=== PATIENT | male | born 1960 | race Caucasian/White ===

== ENCOUNTER 2018-11-19 16:11 | Inpatient (IN) | payer OTHER ==
[2018-11-19 16:41] VITALS: BMI 25.0
--- NOTE | 2018-11-19 18:16 | HP ---
CIWA Score Nausea/Vomitin Muscle Tremors: 3 Anxiety: 3 Agitation: 3 Paroxysmal Sweats: 1-Minimal Palms Moist Orientation: 0-Oriented Tacttile Disturbances: 1-Very Mild Itch/Numbness Auditory Disturbances: 0-None Visual Disturbances: 0-None Headache: 2-Mild CIWA-Ar Total Score: 15 - Admission Criteria [facility]ASAS Guidelines: Admission for Medically Managed Detox: Requires at least one of the followin. CIWA greater than 12 2. Seizures within the past 24 hours 3. Delirium tremens within the past 24 hours 4. Hallucinations within the past 24 hours 5. Acute intervention needed for co occurring medical disorder 6. Acute intervention needed for co occurring psychiatric disorder 7. Severe withdrawal that cannot be handled at a lower level of care (continued vomiting, continued diarrhea, abnormal vital signs) requiring intravenous medication and/or fluids 8. Admission ROS S - HPI Chief Complaint: i need help to stop drinking alcohol Allergies/Adverse Reactions: Allergies Allergy/AdvReac Type Severity Reaction Status Date / Time No Known Allergies Allergy Verified 11/19/18 16:34 History of Present Illness: this 58 years old male with alcohol dependence,withdrawal symptom,seeking detox, last detox 2006 in [facility] denied seizure syncope open heart surgery mitral valve repair in 08/04 and lung surgery right on suboxone maintainence adhd anxiety,depression,insomnia longest sobriety 2 months plan to out patient program,aa meeting nicotine 10 cigarette,would like to have patch Exam Limitations: No Limitations - Ebola screening Have you traveled outside of the country in the last 21 days: No (N) Have you had contact with anyone from an Ebola affected area: No Do you have a fever: No - Review of Systems Constitutional: Loss of Appetite, Malaise, Night Sweats, Changes in sleep, Weakness EENT: reports: Nose Congestion Respiratory: reports: No Symptoms reported, Other (sugery of lung right) Cardiac: reports: Other (history of mitral valve repair) GI: reports: Nausea, Abdominal cramping : reports: No Symptoms Reported Musculoskeletal: reports: Back Pain, Muscle Pain Integumentary: reports: Dryness Neuro: reports: Headache, Tremors Endocrine: reports: No Symptoms Reported Hematology: reports: No Symptoms Reported Psychiatric: reports: No Sypmtoms Reported, Judgement Intact, Mood/Affect Appropiate, Orientated x3, Anxious, Depressed, other (insomnia,ptsd,adhd) Patient History - Patient Medical History Hx Anemia: No Hx Asthma: No Hx Chronic Obstructive Pulmonary Disease (COPD): No Hx Cancer: No Hx Cardiac Disorders: Yes (mitral valve repair) Hx Congestive Heart Failure: No Hx Hypertension: Yes (on med) Hx Hypercholesterolemia: No Hx Pacemaker: No HX Cerebrovascular Accident: No Hx Seizures: No Hx Dementia: No Hx Diabetes: No Hx Gastrointestinal Disorders: No Hx Liver Disease: No Hx Genitourinary Disorders: No Hx Sexually Transmitted Disorders: No Hx Renal Disease (ESRD): No Hx Thyroid Disease: No Hx Human Immunodeficiency Virus (HIV): No (last 2017) Hx Hepatitis C: No Hx Depression: Yes (anxiety,insomnia,ptsd,adhd) Hx Suicide Attempt: No Hx Bipolar Disorder: No Hx Schizophrenia: No Other Medical History: no suicidal,no homicidal - Patient Surgical History Past Surgical History: Yes Hx Cardiac Surgery: Yes (mitral valve repair 08/04) Hx Lung Surgery: Yes (right 08/04) - PPD History Previous Implant?: Yes Documented Results: Negative w/o proof Implanted On Prior [facility] Admission?: No PPD to be Administered?: No - Smoking Cessation Smoking history: Current every day smoker Have you smoked in the past 12 months: Yes Cigars Per Day: 10 Hx Chewing Tobacco Use: No Initiated information on smoking cessation: Yes 'Breaking Loose' booklet given: 11/19/18 - Substance & Tx. History Hx Alcohol Use: Yes Hx Substance Use: No Substance Use Type: Alcohol Hx Substance Use Treatment: Yes (2006 [facility]) - Substances abused Alcohol Substance route: Oral Frequency: Daily Amount used: 1 to 1 and half of 80% rum/ alcohol,Bacardi. Age of first use: 21 Date of last use: 11/19/18 Family Disease History - Family Disease History Family History: Denies Admission Physical Exam S - Vital Signs Vital Signs: Vital Signs - 24 hr 11/19/18 16:33 Temperature 98.9 F Pulse Rate 112 H Respiratory 18 Rate Blood Pressure 109/79 - Physical General Appearance: Yes: Moderate Distress, Tremorous, Irritable, Sweating, Anxious HEENTM: Yes: Normal ENT Inspection, RADHA, Pharynx Normal Respiratory: Yes: Within Normal Limits, Lungs Clear, Normal Breath Sounds Neck: Yes: Within Normal Limits, Supple, Trachea in good position Breast: Yes: Within Normal Limits Cardiology: Yes: Regular Rhythm, Regular Rate, S1, S2, Surgical Scar Abdominal: Yes: Within Normal Limits, Normal Bowel Sounds, Non Tender, Soft Genitourinary: Yes: Within Normal Limits Back: Yes: Muscle Spasm Musculoskeletal: Yes: Back pain, Muscle Pain Extremities: Yes: Normal Range of Motion, Tremors Neurological: Yes: 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 II-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 NML intact, Fully Oriented, Alert, Motor Strength 5/5 Integumentary: Yes: Dry Lymphatic: Yes: Within Normal Limits - Diagnostic (1) Alcohol dependence with uncomplicated withdrawal Current Visit: Yes Status: Acute (2) Syncope Current Visit: Yes Status: Acute (3) History of repair of mitral valve Current Visit: Yes Status: Acute (4) History of lung surgery Current Visit: Yes Status: Acute (5) Nicotine dependence Current Visit: Yes Status: Acute (6) Insomnia secondary to depression with anxiety Current Visit: Yes Status: Acute (7) PTSD (post-traumatic stress disorder) Current Visit: Yes Status: Acute (8) ADHD Current Visit: Yes Status: Acute Cleared for Admission S - Detox or Rehab [facility] Level of Care: Medically Managed Detox Regimen/Protocol: Librium Breathalyzer - Breathalyzer Breathalyzer: 0.104 Urine Drug Screen - Test Device Lot number: [id number] Expiration date: 08/15/20 - Control Is test valid?: Yes - Results Drug screen NEGATIVE: No Urine drug screen results: BZO-Benzodiazepines, BUP-Suboxone Inpatient Rehab Admission - Rehab Decision to Admit Inpatient rehab admission?: No
[2018-11-19] MEDS ORDERED: BISMUTH SUBSALICYLATE 524 MG/30 ML UD PO PRN (18:29)
[2018-11-19] MEDS ORDERED: chlordiazePOXIDE HCL 25 MG CAPSULE PO PRN (18:29)
[2018-11-19] MEDS ORDERED: MENTHOL/PHENOL 1 EACH UD MM PRN (18:29)
[2018-11-19] MEDS ORDERED: MAGNESIUM CITRATE 300 ML BOTTLE PO PRN (18:29)
[2018-11-19] MEDS ORDERED: IBUPROFEN 400 MG TABLET (FP) PO PRN (18:29)
[2018-11-19] MEDS ORDERED: MAG HYDROX/AL HYDROX/SIMETH 30 ML UNIT-DOSE CUP PO PRN (18:29)
[2018-11-19] MEDS ORDERED: ACETAMINOPHEN 325 MG TABLET (FP) PO PRN ×2 (18:29)
[2018-11-19] MEDS ORDERED: MAGNESIUM HYDROX 2400MG/30ML ORAL SUSPENSION 30 ML CUP PO PRN (18:29)
[2018-11-19] MEDS: APIXABAN 5 MG TABLET PO SCH (21:54)
[2018-11-19] MEDS: BUPRENORPHINE/NALOXONE 8 MG/2 MG FILM PACKET SL SCH (21:54)
[2018-11-19] MEDS: THIAMINE HCL 100 MG TABLET (FP) PO SCH (21:55)
[2018-11-19] MEDS: NICOTINE 21 MG/24 HOURS TOPICAL PATCH TD SCH (21:58)
[2018-11-19] MEDS: chlordiazePOXIDE HCL 10 MG CAPSULE PO SCH (22:00)
[2018-11-19] MEDS ORDERED: chlordiazePOXIDE HCL 25 MG CAPSULE PO SCH (23:00)
[2018-11-20] MEDS: hydrOXYzine HCL 25 MG TABLET (FP) PO PRN ×3 (01:13→22:11)
[2018-11-20] MEDS ORDERED: chlordiazePOXIDE 5 MG CAPSULE ONE (05:08)
[2018-11-20] MEDS: BUPRENORPHINE/NALOXONE 8 MG/2 MG FILM PACKET SL SCH ×2 (05:32→22:09)
[2018-11-20] MEDS: chlordiazePOXIDE HCL 10 MG CAPSULE PO SCH (05:32)
--- NOTE | 2018-11-20 09:11 | PN ---
S CIWA - CIWA Score Nausea/Vomitin-Mild Nausea/No Vomiting Muscle Tremors: 4-Moderate,w/Arms Extend Anxiety: 3 Agitation: 3 Paroxysmal Sweats: 1-Minimal Palms Moist Orientation: 0-Oriented Tacttile Disturbances: 1-Very Mild Itch/Numbness Auditory Disturbances: 0-None Visual Disturbances: 0-None Headache: 1-Very Mild CIWA-Ar Total Score: 14 [facility] Progress Note (SOAP) Subjective: 58 years old male admitted on 11/19/18 for alcohol withdrawal sx management doing well with librium detox regimen ambulating on hallway social with peers in day room discuss aftercare patient prefers return to [facility] Objective: 11/20/18 09:20 Vital Signs Temperature 98.5 F 11/20/18 09:04 Pulse Rate 119 H 11/20/18 09:04 Respiratory Rate 20 11/20/18 09:04 Blood Pressure 154/106 H 11/20/18 09:04 O2 Sat by Pulse Oximetry (%) 11/20/18 09:21 lab pending Assessment: 11/20/18 09:24 alcohol withdrawal sx hypertension Plan: continue alcohol detox resume suboxone amiodarone metoprolol and eliquis
[2018-11-20] MEDS: metoPROLOL SUCCINATE 25 MG TAB.SR.24H (FP) PO SCH (10:34)
[2018-11-20] MEDS: AMIODARONE HCL 200 MG TABLET (FP) PO SCH (10:34)
[2018-11-20] MEDS: PRENATAL VITAMINS W/ FOLIC ACID TABLET (FP) PO SCH (10:34)
[2018-11-20] MEDS: APIXABAN 5 MG TABLET PO SCH ×2 (10:35→22:09)
[2018-11-20] MEDS: chlordiazePOXIDE HCL 25 MG CAPSULE PO SCH ×3 (10:35→22:09)
[2018-11-20] MEDS: NICOTINE 21 MG/24 HOURS TOPICAL PATCH TD SCH (10:35)
[2018-11-20 10:50] LABS: HEMATOCRIT 37.2 % (35.4-49); HEMOGLOBIN 12.6 GM/dL (11.7-16.9); MCH 29.8 pg (25.7-33.7); MCHC 33.9 g/dl (32.0-35.9); MEAN PLT VOLUME 6.5 fl (7.5-11.1); PLATELET COUNT 288 K/MM3 (134-434); RBC 4.22 M/mm3 (4.00-5.60); RDW 17.1 % (11.9-15.9); WHITE BLOOD COUNT 7.6 K/mm3 (4.0-10.0)
[2018-11-20 11:06] LABS: ALBUMIN 3.1 g/dl (3.4-5.0); BILIRUBIN,TOTAL 0.5 mg/dL (0.2-1); BLOOD UREA NITROGEN 14.5 mg/dL (7-18); CALCIUM 8.6 mg/dL (8.5-10.1); CREATININE 0.9 mg/dL (0.55-1.3); POTASSIUM 4.5 mmol/L (3.5-5.1); TOT PROT 7.5 g/dl (6.4-8.2)
[2018-11-20] MEDS ORDERED: METHOCARBAMOL 500 MG TABLET PO ONE (11:30)
--- NOTE | 2018-11-20 11:55 | EKG ---
Test Reason : Blood Pressure : / mmHG Vent. Rate : 107 BPM Atrial Rate : 214 BPM P-R Int : 000 ms QRS Dur : 098 ms QT Int : 424 ms P-R-T Axes : 266 000 -23 degrees QTc Int : 566 ms ATRIAL FLUTTER WITH 2:1 A-V CONDUCTION INCOMPLETE RIGHT BUNDLE BRANCH BLOCK CANNOT RULE OUT INFERIOR INFARCT , AGE UNDETERMINED PROLONGED QT ABNORMAL ECG NO PREVIOUS ECGS AVAILABLE Confirmed by CARINA RAVI, DOUGLAS ([id number]) on 11/20/2018 11:54:55 AM Referred By: JIM MARIN Confirmed By:DOUGLAS LIM MD
[2018-11-20] MEDS ORDERED: chlordiazePOXIDE HCL 25 MG CAPSULE PO ONE (14:00)
[2018-11-20] MEDS: THIAMINE HCL 100 MG TABLET (FP) PO SCH (22:09)
[2018-11-20] MEDS: METHOCARBAMOL 500 MG TABLET PO PRN (23:45)
[2018-11-20] MEDS: MELATONIN 5 MG TABLETS PO PRN (23:45)
[2018-11-21] MEDS: chlordiazePOXIDE HCL 25 MG CAPSULE PO SCH ×4 (05:11→22:06)
[2018-11-21] MEDS: BUPRENORPHINE/NALOXONE 8 MG/2 MG FILM PACKET SL SCH ×2 (05:11→22:06)
[2018-11-21] MEDS: hydrOXYzine HCL 25 MG TABLET (FP) PO PRN ×2 (07:55→22:07)
[2018-11-21] MEDS: PRENATAL VITAMINS W/ FOLIC ACID TABLET (FP) PO SCH (10:08)
[2018-11-21] MEDS: AMIODARONE HCL 200 MG TABLET (FP) PO SCH (10:08)
[2018-11-21] MEDS: APIXABAN 5 MG TABLET PO SCH ×2 (10:08→22:06)
[2018-11-21] MEDS: metoPROLOL SUCCINATE 25 MG TAB.SR.24H (FP) PO SCH (10:08)
[2018-11-21] MEDS: METHOCARBAMOL 500 MG TABLET PO PRN ×2 (10:11→22:06)
[2018-11-21] MEDS: NICOTINE 21 MG/24 HOURS TOPICAL PATCH TD SCH (11:14)
--- NOTE | 2018-11-21 15:08 | PN ---
S CIWA - CIWA Score Nausea/Vomitin-Mild Nausea/No Vomiting Muscle Tremors: 2 Anxiety: 3 Agitation: 2 Paroxysmal Sweats: 1-Minimal Palms Moist Orientation: 0-Oriented Tacttile Disturbances: 1-Very Mild Itch/Numbness Auditory Disturbances: 0-None Visual Disturbances: 0-None Headache: 2-Mild CIWA-Ar Total Score: 12 [facility] Progress Note (SOAP) Subjective: history of DC discuss risks of alcohol misuse related to cardiac insult doing well with librium detox protocol along with suboxone maintenance less tremor mild sweat Objective: 11/21/18 15:09 Vital Signs Temperature 97.7 F 11/21/18 13:42 Pulse Rate 110 H 11/21/18 13:42 Respiratory Rate 20 11/21/18 13:42 Blood Pressure 116/76 11/21/18 13:42 O2 Sat by Pulse Oximetry (%) Laboratory Last Values WBC 7.6 K/mm3 (4.0-10.0) 11/20/18 08:20 RBC 4.22 M/mm3 (4.00-5.60) 11/20/18 08:20 Hgb 12.6 GM/dL (11.7-16.9) 11/20/18 08:20 Hct 37.2 % (35.4-49) 11/20/18 08:20 MCV 88.0 fl (80-96) 11/20/18 08:20 MCH 29.8 pg (25.7-33.7) 11/20/18 08:20 MCHC 33.9 g/dl (32.0-35.9) 11/20/18 08:20 RDW 17.1 % (11.9-15.9) H 11/20/18 08:20 Plt Count 288 K/MM3 (134-434) 11/20/18 08:20 MPV 6.5 fl (7.5-11.1) L 11/20/18 08:20 Sodium 138 mmol/L (136-145) 11/20/18 08:20 Potassium 4.5 mmol/L (3.5-5.1) 11/20/18 08:20 Chloride 101 mmol/L (98-107) 11/20/18 08:20 Carbon Dioxide 33 mmol/L (21-32) H 11/20/18 08:20 Anion Gap 4 MMOL/L (8-16) L 11/20/18 08:20 BUN 14.5 mg/dL (7-18) 11/20/18 08:20 Creatinine 0.9 mg/dL (0.55-1.3) 11/20/18 08:20 Est GFR (CKD-EPI)AfAm 110.27 11/20/18 08:20 Est GFR (CKD-EPI)NonAf 95.14 11/20/18 08:20 Random Glucose 96 mg/dL (74-106) 11/20/18 08:20 Calcium 8.6 mg/dL (8.5-10.1) 11/20/18 08:20 Total Bilirubin 0.5 mg/dL (0.2-1) 11/20/18 08:20 AST 23 U/L (15-37) 11/20/18 08:20 ALT 49 U/L (13-61) 11/20/18 08:20 Alkaline Phosphatase 286 U/L (45-117) H 11/20/18 08:20 Total Protein 7.5 g/dl (6.4-8.2) 11/20/18 08:20 Albumin 3.1 g/dl (3.4-5.0) L 11/20/18 08:20 RPR Titer Nonreactive (NONREACTIVE) 11/20/18 08:20 bp well managed within acceptable range lab noted 11/21/18 15:10 Assessment: 11/21/18 15:10 alcohol withdrawal sx Plan: continue alcohol detox
[2018-11-21 17:00] LABS: PH,URINE 8.5 (5.0-8.0); URINE APPEARANCE CLEAR; URINE BILIRUBIN NEGATIVE (NEGATIVE); URINE COLOR YELLOW; URINE GLUCOSE (UA) NEGATIVE (NEGATIVE); URINE KETONE NEGATIVE (NEGATIVE); URINE LEUK ESTERASE NEGATIVE (NEGATIVE); URINE NITRITE NEGATIVE (NEGATIVE); URINE PROTEIN NEGATIVE (NEGATIVE)
[2018-11-21] MEDS: THIAMINE HCL 100 MG TABLET (FP) PO SCH (22:06)
[2018-11-21] MEDS: MELATONIN 5 MG TABLETS PO PRN (23:28)
[2018-11-22] MEDS ORDERED: chlordiazePOXIDE HCL 10 MG CAPSULE PO PRN
[2018-11-22] MEDS: chlordiazePOXIDE HCL 10 MG CAPSULE PO SCH ×4 (05:21→22:00)
[2018-11-22] MEDS: BUPRENORPHINE/NALOXONE 8 MG/2 MG FILM PACKET SL SCH ×2 (05:21→22:01)
--- NOTE | 2018-11-22 09:48 | PN ---
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 upon 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 report sister will pick him up to home and to [facility] Objective: 11/22/18 11:10 Vital Signs Temperature 98.4 F 11/22/18 09:12 Pulse Rate 115 H 11/22/18 09:12 Respiratory Rate 20 11/22/18 09:12 Blood Pressure 98/73 11/22/18 09:12 O2 Sat by Pulse Oximetry (%) Laboratory Last Values WBC 7.6 K/mm3 (4.0-10.0) 11/20/18 08:20 RBC 4.22 M/mm3 (4.00-5.60) 11/20/18 08:20 Hgb 12.6 GM/dL (11.7-16.9) 11/20/18 08:20 Hct 37.2 % (35.4-49) 11/20/18 08:20 MCV 88.0 fl (80-96) 11/20/18 08:20 MCH 29.8 pg (25.7-33.7) 11/20/18 08:20 MCHC 33.9 g/dl (32.0-35.9) 11/20/18 08:20 RDW 17.1 % (11.9-15.9) H 11/20/18 08:20 Plt Count 288 K/MM3 (134-434) 11/20/18 08:20 MPV 6.5 fl (7.5-11.1) L 11/20/18 08:20 Sodium 138 mmol/L (136-145) 11/20/18 08:20 Potassium 4.5 mmol/L (3.5-5.1) 11/20/18 08:20 Chloride 101 mmol/L (98-107) 11/20/18 08:20 Carbon Dioxide 33 mmol/L (21-32) H 11/20/18 08:20 Anion Gap 4 MMOL/L (8-16) L 11/20/18 08:20 BUN 14.5 mg/dL (7-18) 11/20/18 08:20 Creatinine 0.9 mg/dL (0.55-1.3) 11/20/18 08:20 Est GFR (CKD-EPI)AfAm 110.27 11/20/18 08:20 Est GFR (CKD-EPI)NonAf 95.14 11/20/18 08:20 Random Glucose 96 mg/dL (74-106) 11/20/18 08:20 Calcium 8.6 mg/dL (8.5-10.1) 11/20/18 08:20 Total Bilirubin 0.5 mg/dL (0.2-1) 11/20/18 08:20 AST 23 U/L (15-37) 11/20/18 08:20 ALT 49 U/L (13-61) 11/20/18 08:20 Alkaline Phosphatase 286 U/L (45-117) H 11/20/18 08:20 Total Protein 7.5 g/dl (6.4-8.2) 11/20/18 08:20 Albumin 3.1 g/dl (3.4-5.0) L 11/20/18 08:20 Urine Color Yellow 11/20/18 15:50 Urine Appearance Clear 11/20/18 15:50 Urine pH 8.5 (5.0-8.0) H 11/20/18 15:50 Ur Specific [place] 1.023 (1.010-1.035) 11/20/18 15:50 Urine Protein Negative (NEGATIVE) 11/20/18 15:50 Urine Glucose (UA) Negative (NEGATIVE) 11/20/18 15:50 Urine Ketones Negative (NEGATIVE) 11/20/18 15:50 Urine Blood Negative (NEGATIVE) 11/20/18 15:50 Urine Nitrite Negative (NEGATIVE) 11/20/18 15:50 Urine Bilirubin Negative (NEGATIVE) 11/20/18 15:50 Urine Urobilinogen 1.0 mg/dL (0.2-1.0) 11/20/18 15:50 Ur Leukocyte Esterase Negative (NEGATIVE) 11/20/18 15:50 RPR Titer Nonreactive (NONREACTIVE) 11/20/18 08:20 lab noted Assessment: 11/22/18 09:48 alcohol withdrawal sx Plan: continue alcohol detox
[2018-11-22] MEDS: APIXABAN 5 MG TABLET PO SCH ×2 (10:06→22:00)
[2018-11-22] MEDS: METHOCARBAMOL 500 MG TABLET PO PRN (10:06)
[2018-11-22] MEDS: metoPROLOL SUCCINATE 25 MG TAB.SR.24H (FP) PO SCH (10:06)
[2018-11-22] MEDS: NICOTINE 21 MG/24 HOURS TOPICAL PATCH TD SCH (10:06)
[2018-11-22] MEDS: PRENATAL VITAMINS W/ FOLIC ACID TABLET (FP) PO SCH (10:06)
[2018-11-22] MEDS: AMIODARONE HCL 200 MG TABLET (FP) PO SCH (10:06)
--- NOTE | 2018-11-22 13:28 | EKG ---
Test Reason : Blood Pressure : / mmHG Vent. Rate : 113 BPM Atrial Rate : 226 BPM P-R Int : 000 ms QRS Dur : 098 ms QT Int : 494 ms P-R-T Axes : 000 012 073 degrees QTc Int : 677 ms ATRIAL FLUTTER WITH 2:1 A-V CONDUCTION INCOMPLETE RIGHT BUNDLE BRANCH BLOCK POSSIBLE INFERIOR INFARCT , AGE UNDETERMINED PROLONGED QT ABNORMAL ECG WHEN COMPARED WITH ECG OF 20-NOV-2018 19:00, ST LESS DEPRESSED IN INFERIOR LEADS T WAVE INVERSION NOW EVIDENT IN INFERIOR LEADS NONSPECIFIC T WAVE ABNORMALITY NOW EVIDENT IN ANTEROLATERAL LEADS Confirmed by CARLOS ALVAREZ MD ([id number]) on 11/22/2018 1:28:30 PM Referred By: JAYJAY RIOS Confirmed By:CARLOS ALVAREZ MD
--- NOTE | 2018-11-22 14:34 | PN ---
[facility] Progress Note Note: Medicine consult: rapid HR 62 y/o M with PMH CAD s/p TX, MV repair, afib, ADHD, anxiety, depression who presented for alcohol detox. Was consulted for rapid HR. EKG done reveals + aflutter w/ incomplete RBBB. Had multiple EKGs done revealing no changes. Pt is currently anticoagulated, on eliquis. Currently asymptomatic ; denies chest pain , or SOB. Only endorses heightened anxiety which he attributes to being in the detox center. PMH: as above PsxH: MV repair, R "lung sx for clot" ?PE. pt unsure meds: as in chart allergies: NKDA FH: mother - cardiac issues SH: heavy alcohol use, rest per chart Vitals 11/22/18 13:03 Temperature 99.3 F Pulse Rate 111 H Respiratory 20 Rate Blood Pressure 104/74 Exam general: resting comfortably. in NAD heent: ncat, moist mucous membranes neck: supple card: +irreg irreg rhythm pulm: cta b/l abd: nontender, nondistended LE: without edema Laboratory Tests 11/20/18 11/20/18 11/20/18 08:20 08:20 08:20 WBC 7.6 Hgb 12.6 Hct 37.2 Plt Count 288 Sodium 138 Potassium 4.5 Chloride 101 Carbon Dioxide 33 H BUN 14.5 Creatinine 0.9 Random Glucose 96 Alkaline Phosphatase 286 H Total Protein 7.5 Albumin 3.1 L RPR Titer Nonreactive 11/20/18 15:50 Albumin Urine pH 8.5 H Urine Protein Negative Urine Glucose (UA) Negative Urine Ketones Negative Urine Blood Negative RPR Titer 62 y/o M with PMH CAD s/p TX, MV repair, afib, ADHD, anxiety, depression who presented for alcohol detox. Was consulted for rapid HR. #asymptomatic aflutter -c/w to a/c with eliquis -recommend adequate PO hydration -pt w/o chest pain or pressure, SOB. feeling well -recommend cont'd cardio f/u as outpatient Isabel Felix MD PGY-3 Medicine team
[2018-11-22] MEDS: THIAMINE HCL 100 MG TABLET (FP) PO SCH (22:00)
[2018-11-22] MEDS: MELATONIN 5 MG TABLETS PO PRN (22:01)
[2018-11-23] MEDS ORDERED: chlordiazePOXIDE HCL 10 MG CAPSULE PO SCH (05:00)
[2018-11-23] MEDS: BUPRENORPHINE/NALOXONE 8 MG/2 MG FILM PACKET SL SCH (05:08)
[2018-11-23 06:11] VITALS: BP 107/79; PULSE 111; TEMP 97.8
--- NOTE | 2018-11-23 09:39 | DS ---
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 anxiety since childhood self medicated with "alcohol" had silent "heart attach" and mitral valve replacement, atrial fibrillation treated with eliquis aspirin depressive mood denies suicidal ideation early discharge due to patient has appointment with gravel inspector upon discharged from detox strong family support of sister and "relatives" doing well with librium detox regimen no complication throughout the detox stay patient is alert oriented x 3 no shortness of breathe, arrhythmic no dizziness denies chest pain skin warm but anxious about being here in the detox unit Pertinent Past History: encourage the patient bring in medication list and lab report to aftercare program - Physical Exam Results Vital Signs: Vital Signs Temperature 97.8 F 11/23/18 06:11 Pulse Rate 111 H 11/23/18 06:11 Respiratory Rate 18 11/23/18 06:11 Blood Pressure 107/79 11/23/18 06:11 O2 Sat by Pulse Oximetry (%) Pertinent Admission Physical Exam Findings: alcohol withdrawal sx Laboratory Last Values WBC 7.6 K/mm3 (4.0-10.0) 11/20/18 08:20 RBC 4.22 M/mm3 (4.00-5.60) 11/20/18 08:20 Hgb 12.6 GM/dL (11.7-16.9) 11/20/18 08:20 Hct 37.2 % (35.4-49) 11/20/18 08:20 MCV 88.0 fl (80-96) 11/20/18 08:20 MCH 29.8 pg (25.7-33.7) 11/20/18 08:20 MCHC 33.9 g/dl (32.0-35.9) 11/20/18 08:20 RDW 17.1 % (11.9-15.9) H 11/20/18 08:20 Plt Count 288 K/MM3 (134-434) 11/20/18 08:20 MPV 6.5 fl (7.5-11.1) L 11/20/18 08:20 Sodium 138 mmol/L (136-145) 11/20/18 08:20 Potassium 4.5 mmol/L (3.5-5.1) 11/20/18 08:20 Chloride 101 mmol/L (98-107) 11/20/18 08:20 Carbon Dioxide 33 mmol/L (21-32) H 11/20/18 08:20 Anion Gap 4 MMOL/L (8-16) L 11/20/18 08:20 BUN 14.5 mg/dL (7-18) 11/20/18 08:20 Creatinine 0.9 mg/dL (0.55-1.3) 11/20/18 08:20 Est GFR (CKD-EPI)AfAm 110.27 11/20/18 08:20 Est GFR (CKD-EPI)NonAf 95.14 11/20/18 08:20 Random Glucose 96 mg/dL (74-106) 11/20/18 08:20 Calcium 8.6 mg/dL (8.5-10.1) 11/20/18 08:20 Total Bilirubin 0.5 mg/dL (0.2-1) 11/20/18 08:20 AST 23 U/L (15-37) 11/20/18 08:20 ALT 49 U/L (13-61) 11/20/18 08:20 Alkaline Phosphatase 286 U/L (45-117) H 11/20/18 08:20 Total Protein 7.5 g/dl (6.4-8.2) 11/20/18 08:20 Albumin 3.1 g/dl (3.4-5.0) L 11/20/18 08:20 Urine Color Yellow 11/20/18 15:50 Urine Appearance Clear 11/20/18 15:50 Urine pH 8.5 (5.0-8.0) H 11/20/18 15:50 Ur Specific [place] 1.023 (1.010-1.035) 11/20/18 15:50 Urine Protein Negative (NEGATIVE) 11/20/18 15:50 Urine Glucose (UA) Negative (NEGATIVE) 11/20/18 15:50 Urine Ketones Negative (NEGATIVE) 11/20/18 15:50 Urine Blood Negative (NEGATIVE) 11/20/18 15:50 Urine Nitrite Negative (NEGATIVE) 11/20/18 15:50 Urine Bilirubin Negative (NEGATIVE) 11/20/18 15:50 Urine Urobilinogen 1.0 mg/dL (0.2-1.0) 11/20/18 15:50 Ur Leukocyte Esterase Negative (NEGATIVE) 11/20/18 15:50 RPR Titer Nonreactive (NONREACTIVE) 11/20/18 08:20 lab noted - Treatment Hospital Course: Detox Protocol Followed, Detoxed Safely, Responded well, Discharged Condition Good, Rehab Referral Accepted Patient has Accepted a Rehab Referral to: [facility] - Medication Discharge Medications: Ambulatory Orders Amiodarone HCl [Cordarone -] 200 mg PO DAILY 11/19/18 Amphetamine Sulfate 20 mg PO BID 11/19/18 Apixaban [Eliquis] 5 mg PO BID 11/19/18 Buprenorphine HCl/Naloxone HCl [Suboxone 8 mg-2 mg Sl Tablets] 1 tablet SL BID 11/19/18 Bupropion HCl [Bupropion Xl] 150 mg PO DAILY 11/19/18 Diazepam [Valium] 5 mg PO BID 11/19/18 Escitalopram Oxalate [Lexapro -] 20 mg PO DAILY 11/19/18 Metoprolol Succinate [Toprol XL -] 25 mg PO DAILY 11/19/18 Zolpidem Tartrate 10 mg PO HS PRN 11/19/18 - Diagnosis (1) Alcohol dependence with uncomplicated withdrawal Current Visit: Yes Status: Acute (2) Encounter for monitoring Suboxone maintenance therapy Current Visit: Yes Status: Chronic (3) History of repair of mitral valve Current Visit: Yes Status: Resolved (4) Nicotine dependence Current Visit: Yes Status: Acute Qualifiers: Nicotine product type: cigarettes Substance use status: in withdrawal Qualified Code(s): F17.213 - Nicotine dependence, cigarettes, with withdrawal - AMA Did Patient Leave Against Medical Advice: No
[2018-11-24] MEDS ORDERED: chlordiazePOXIDE HCL 10 MG CAPSULE PO ONE (05:00)
== END 2018-11-23 08:19 | disposition home or self-care (01) | DRG 775 ==
LOC: YASAS 16:11 → Y3N 18:52
PROVIDERS: ADMIT Surgery; ATTEND Allergy & Immunology
PROC: HZ2ZZZZ Detoxification Services for Substance Abuse Treatment (ICD-10-PCS; principal; 2018-11-19)
DX: F10.230 Alcohol dependence with withdrawal, uncomplicated (principal); F17.210 Nicotine dependence, cigarettes, uncomplicated; F51.05 Insomnia due to other mental disorder; F90.9 Attention-deficit hyperactivity disorder, unspecified type; F41.8 Other specified anxiety disorders; F32.9 Major depressive disorder, single episode, unspecified; I25.10 Atherosclerotic heart disease of native coronary artery without angina pectoris; I10 Essential (primary) hypertension; I25.2 Old myocardial infarction; I48.91 Unspecified atrial fibrillation; Z79.01 Long term (current) use of anticoagulants; Z51.81 Encounter for therapeutic drug level monitoring; Z98.890 Other specified postprocedural states
CPT/HCPCS: 36415; 80053; 81003; 85027; 86593; 93005; 93010